=== PATIENT | male | born 1990 | race Caucasian/White ===

== ENCOUNTER 2017-11-23 15:47 | Emergency (ER) | payer OTHER ==
[~2017-11-23] VITALS: Ht 175.3 cm; Wt 74.8 kg
[2017-11-23] MEDS ORDERED: LIDOCAINE HCL/MPF 1% 30 ML VIAL IJ ONE (16:13)
[2017-11-23 16:20] VITALS: BP 133/75
[2017-11-23] MEDS ORDERED: LIDOCAINE 1% INJ 50 ML MDV IJ ONE (16:30)
== END 2017-11-23 17:34 ==
LOC: ER 15:49
DX: S01.111A Laceration without foreign body of right eyelid and periocular area, initial encounter (principal); W25.XXXA Contact with sharp glass, initial encounter; Y93.89 Activity, other specified; Y92.89 Other specified places as the place of occurrence of the external cause; Y99.8 Other external cause status
CPT/HCPCS: 12013; 99283; A4606; A6402; A6403; J3490; Z7610

== ENCOUNTER 2017-12-02 12:19 | Emergency (ER) | payer OTHER ==
[~2017-12-02] VITALS: Ht 177.8 cm; Wt 72.6 kg
[2017-12-02 12:19] VITALS: BP 126/66
== END 2017-12-02 13:01 | disposition home or self-care (01) ==
LOC: ER 12:20
DX: S01.111D Laceration without foreign body of right eyelid and periocular area, subsequent encounter (principal); F10.10 Alcohol abuse, uncomplicated; F15.10 Other stimulant abuse, uncomplicated; F11.10 Opioid abuse, uncomplicated
CPT/HCPCS: 99281; A4606; Z7610; Z7502